=== PATIENT | female | born 1955 | race Two or more races ===

== ENCOUNTER → 2018-03-26 | Outpatient (CLI) | payer OTHER ==
[~2018-03-26] MED LIST: TEGRETOL200 MG PO
== END | disposition home or self-care (01) ==
LOC: RAD 501 09:39
DX: R07.1 Chest pain on breathing (principal)

== ENCOUNTER 2018-03-28 15:10 | Outpatient (CLI) | payer OTHER | END 2018-03-28 16:11 | disposition home or self-care (01) | LOC: RAD 15:10 | DX: R42 Dizziness and giddiness (principal); F07.81 Postconcussional syndrome; M51.36 Other intervertebral disc degeneration, lumbar region | CPT/HCPCS: 70552; 72148 ==

== ENCOUNTER 2021-11-04 13:31 | Outpatient (CLI) | payer OTHER | END 2021-11-04 13:39 | disposition home or self-care (01) | LOC: RAD 13:31 | PROVIDERS: ATTEND Internal Medicine Pulmonary Disease | DX: J45.30 Mild persistent asthma, uncomplicated (principal) ==